=== PATIENT | female | born 1945 | race Two or more races ===

== ENCOUNTER 2018-02-15 10:25 | Day surgery (SDC) | payer MEDICARE, OTHER ==
--- NOTE | 2018-02-11 11:44 | Anethesia Preoperative Eval ---
Anesthesia Pre-op PMH/ROS General Date of Evaluation: February 11, 2018 Anesthesiologist: Moon ASA Score: ASA 3 Mallampati Score Class I : Soft palate, uvula, fauces, pillars visible Class II: Soft palate, uvula, fauces visible Class III: Soft palate, base of uvula visible Class IV: Only hard plate visible Mallampati Classification: Class II Surgeon: Talia Diagnosis: Abd Pain Surgical Procedure: EGD/EUS Anesthesia History: none Family History: no anesthesia problems Allergies: Uncoded Allergies: PCN (Allergy, Unknown, 10/29/15) Medications: see eMAR Past Medical History Cardiovascular: Reports: HTN, arrhythmia - AFib, other - HL Gastrointestinal/Genitourinary: Reports: GERD Neurologic/Psychiatric: Reports: CVA, depression/anxiety Anesthesia Pre-op Phys. Exam Physician Exam Vital Signs Date Time Temp Pulse Resp B/P (MAP) Pulse Ox O2 Delivery O2 Flow Rate FiO2 02/11/18 11:56 97.5 93 14 137/76 98 Room Air 97.5 Constitutional: NAD Neurologic: CN 2-12 intact Cardiovascular: RRR Respiratory: CTA Gastrointestinal: S/NT/ND Airway Exam Mallampati Score: Class II MO: limited ROM: limited Teeth: missing, intact Anesthesia Pre-op A/P Risk Assessment & Plan Assessment: ASA 3 Plan: GA Status Change Before Surgery: Yuan Chamberlain MD February 11, 2018 11:44
[2018-02-11 11:56] VITALS: BP 137/76
[2018-02-11 12:16] LABS: BASOPHILS % (AUTO) 1.5 % (0.0-2.0); EOSINOPHILS % (AUTO) 3.4 % (0.0-3.0); HEMATOCRIT 41.1 % (37.0-47.0); LYMPHOCYTES % (AUTO) 33.5 % (20.0-45.0); MEAN CORPUSCULAR VOLUME 90 FL (80-99); NEUTROPHILS % (AUTO) 52.6 % (45.0-75.0); PLATELET COUNT 230 K/UL (150-450); RED BLOOD COUNT 4.56 M/UL (4.20-5.40); RED CELL DISTRIBUTION WIDTH 12.5 % (11.6-14.8); WHITE BLOOD COUNT 5.8 K/UL (4.8-10.8)
--- NOTE | 2018-02-11 12:18 | Immediate Post-Op Evaluation ---
Immediate Post-Op Evalulation Immediate Post-Op Evalulation Procedure: EGD/EUS Date of Evaluation: February 11, 2018 Blood Products: 0 Estimated Blood Loss: 1 Urinary Output: 0 Pain Score (1-10): 1 Nausea: No Vomiting: No Complications 0 Patient Status: awake, reacts, patent, none Hydration Status: adequate Yuan Mustafa MD February 11, 2018 12:18
--- NOTE | 2018-02-11 12:19 | 48 Hour Post Anesthesia Eval ---
Post Anesthesia Evaluation Procedure: EGD/EUS Date of Evaluation: February 11, 2018 Airway: patent Nausea: No Vomiting: No Pain Intensity: 1 Hydration Status: adequate Cardiopulmonary Status: Stable Mental Status/LOC: patient returned to baseline Follow-up Care/Observations: 0 Post-Anesthesia Complications: 0 Follow-up care needed: ready to discharge Yuan Mustafa MD February 11, 2018 12:19
[2018-02-11 12:29] LABS: ANION GAP 6 mmol/L (5-15); BLOOD UREA NITROGEN 17 mg/dL (7-18); CALCIUM 8.8 MG/DL (8.5-10.1); CARBON DIOXIDE 29 MMOL/L (21-32); CHLORIDE 105 MMOL/L (98-107); CREATININE 0.9 MG/DL (0.55-1.30); POTASSIUM 3.6 MMOL/L (3.5-5.1); SODIUM 140 MMOL/L (136-145)
[2018-02-11 12:39] LABS: ALANINE AMINOTRANSFERASE 22 U/L (12-78); ALBUMIN 3.5 G/DL (3.4-5.0); ALBUMIN/GLOBULIN RATIO 0.9 (1.0-2.7); ALKALINE PHOSPHATASE 104 U/L (46-116); AMYLASE 18 U/L (25-115); ASPARTATE AMINO TRANSFERASE 18 U/L (15-37); BILIRUBIN,TOTAL 0.4 MG/DL (0.2-1.0)
--- NOTE | 2018-02-14 14:00 | Cardiology Report ---
APPROVED REPORT EKG Measurement Heart [id number] Atrial fibrillation Voltage criteria for left ventricular hypertrophy Prolonged QT Abnormal ECG
[~2018-02-15] VITALS: Ht 149.9 cm; Wt 77.1 kg
[2018-02-15] VITALS (9 sets, daily range): BP systolic 105–162; BP diastolic 64–99
[~2018-02-15 10:25] MED LIST: ATORVASTATIN CA40 MG ORAL; AZOPT10 ML OP; Atropine Inj 1mg/10ml Syr IV PRN; BENAZEPRIL HCL10 MG ORAL; BRIMONIDINE TAR10 ML OP; CARDIZEM CD240 MG ORAL; CYMBALTA60 MG ORAL; DILTIAZEM 24HR180 M1 ORAL; DONEPEZIL HCL10 M2 ORAL; DiphenhydrAMINE 50mg/ml Inj IVP PRN; GABAPENTIN300 MG/61 ORAL; HYDROcodone/Acetamin 7.5/325 tab ORAL PRN; Ketorolac 30mg Inj IV PRN; LATANOPROST1 GM OP; LORazepam Inj 2mg/ml 1ml IV PRN; LR 1000ml 1,000 ML IVLG SCH; Labetalol 5mg/ml 20ml vial IV PRN; METOPROLOL SUCC25 MG ORAL; Metoclopramide 10mg/2ml Inj IVP PRN; Midazolam 2mg/2ml Inj IVP PRN; Norco 5mg/325mg tab ORAL PRN; OMEPRAZOLE20 M2 ORAL; PREDNISOLONE ACE5 ML OP; TIMOPTIC 0.5%1 DRO1; TRAMADOL HCL100 M2 ORAL; XARELTO20 MG ORAL; fentaNYL 100 mcg/2 mL IV PRN; oxyCODONE HCL/Acetaminophen 5/325mg ORAL PRN
[2018-02-15] MEDS ORDERED: LR 1000ml 1,000 ML IVLG SCH (11:55)
[2018-02-15] MEDS ORDERED: LORazepam Inj 2mg/ml 1ml IV PRN (12:00)
[2018-02-15] MEDS ORDERED: LR 1000ml ONE (12:00)
[2018-02-15] MEDS ORDERED: HYDROcodone/Acetamin 7.5/325 tab ORAL PRN (12:00)
[2018-02-15] MEDS ORDERED: Labetalol 5mg/ml 20ml vial IV PRN (12:00)
[2018-02-15] MEDS ORDERED: Lidocaine 1% Plain 30 ml INJ ONE (12:00)
[2018-02-15] MEDS ORDERED: Atropine Inj 1mg/10ml Syr IV PRN (12:00)
[2018-02-15] MEDS ORDERED: fentaNYL 100 mcg/2 mL IV PRN (12:00)
[2018-02-15] MEDS ORDERED: Ketorolac 30mg Inj IV PRN ×2 (12:00)
[2018-02-15] MEDS ORDERED: oxyCODONE HCL/Acetaminophen 5/325mg ORAL PRN (12:00)
[2018-02-15] MEDS ORDERED: Norco 5mg/325mg tab ORAL PRN (12:00)
[2018-02-15] MEDS ORDERED: DiphenhydrAMINE 50mg/ml Inj IVP PRN (12:00)
[2018-02-15] MEDS ORDERED: Metoclopramide 10mg/2ml Inj IVP PRN (12:00)
[2018-02-15] MEDS ORDERED: Propofol 200mg/20ml IV ONE (12:00)
[2018-02-15] MEDS ORDERED: Midazolam 2mg/2ml Inj IVP PRN (12:00)
--- NOTE | 2018-02-15 12:09 | Anethesia Preoperative Eval ---
Anesthesia Pre-op PMH/ROS General Date of Evaluation: February 15, 2018 Time of Evaluation: 11:51 Anesthesiologist: Moon ASA Score: ASA 3 Mallampati Score Class I : Soft palate, uvula, fauces, pillars visible Class II: Soft palate, uvula, fauces visible Class III: Soft palate, base of uvula visible Class IV: Only hard plate visible Mallampati Classification: Class II Surgeon: Talia Diagnosis: Abd Pain Surgical Procedure: EGD/EUS Anesthesia History: none Family History: no anesthesia problems Allergies: Uncoded Allergies: PCN (Allergy, Unknown, 10/29/15) Medications: see eMAR Past Medical History Cardiovascular: Reports: HTN, other - HL Gastrointestinal/Genitourinary: Reports: GERD Neurologic/Psychiatric: Reports: CVA, depression/anxiety Anesthesia Pre-op Phys. Exam Physician Exam Last Vital Signs Date Time Temp Pulse Resp B/P (MAP) Pulse Ox O2 Delivery O2 Flow Rate FiO2 02/15/18 11:00 97.8 87 18 162/99 87 Room Air 97.8 Constitutional: NAD Neurologic: CN 2-12 intact Cardiovascular: RRR Respiratory: CTA Gastrointestinal: S/NT/ND Airway Exam Mallampati Score: Class II MO: limited ROM: limited Teeth: missing, intact Anesthesia Pre-op A/P Risk Assessment & Plan Assessment: ASA 3 Plan: GA Status Change Before Surgery: Yuan Chamberlain MD February 15, 2018 12:09
[2018-02-15] MEDS ORDERED: Heplock Flush 100 units/ml 3 ml syr ONE (12:10)
--- NOTE | 2018-02-15 12:13 | Immediate Post-Op Evaluation ---
Immediate Post-Op Evalulation Immediate Post-Op Evalulation Procedure: EGD/EUS Date of Evaluation: February 15, 2018 Time of Evaluation: 13:24 IV Fluids: 1000 LR Blood Products: 0 Estimated Blood Loss: 1 Urinary Output: 0 Blood Pressure Systolic: 149 Blood Pressure Diastolic: 68 Pulse Rate: 106 Respiratory Rate: 16 O2 Sat by Pulse Oximetry: 100 Temperature (Fahrenheit): 97.8 Pain Score (1-10): 1 Nausea: No Vomiting: No Complications 0 Patient Status: awake, reacts, patent, none Hydration Status: adequate Yuan Mustafa MD February 15, 2018 12:13
--- NOTE | 2018-02-15 12:14 | 48 Hour Post Anesthesia Eval ---
Post Anesthesia Evaluation Procedure: EGD/EUS Date of Evaluation: February 15, 2018 Time of Evaluation: 16:34 Blood Pressure Systolic: 152 0: 98 Pulse Rate: 114 Respiratory Rate: 18 Temperature (Fahrenheit): 98.2 O2 Sat by Pulse Oximetry: 100 Airway: patent Nausea: No Vomiting: No Pain Intensity: 1 Hydration Status: adequate Cardiopulmonary Status: Stable Mental Status/LOC: patient returned to baseline Follow-up Care/Observations: 0 Post-Anesthesia Complications: 0 Follow-up care needed: ready to discharge Yuan Mustafa MD February 15, 2018 12:14
--- NOTE | 2018-02-15 12:17 | Pre-Procedure Note/Attestation ---
Pre-Procedure Note/Attestation Complete Prior to Procedure Planned Procedure: not applicable Procedure Narrative: eus/egd Indications for Procedure Pre-Operative Diagnosis: pancreatic cyst Attestation I attest that I discussed the nature of the procedure; its benefits; risks and complications; and alternatives (and the risks and benefits of such alternatives ), prior to the procedure, with the patient (or the patient's legal premium service representative). I attest that, if there was a reasonable possibility of needing a blood transfusion, the patient (or the patient's legal premium service representative) was given the [facility] standardized written summary, pursuant to the Otilio [employer]i Blood Safety Act ([place] Health and Safety Code # 1645, as amended). I attest that I re-evaluated the patient just prior to the surgery and that there has been no change in the patient's H&P, except as documented below: Kentrell Melgar MD February 15, 2018 12:17
--- NOTE | 2018-02-15 12:17 | Short Stay Surgery H&P ---
History of Present Illness History of Present Illness Chief Complaint see recent full consult note HPI Kateryna Reza is a 72 year old female who was admitted on for Pancreatic Cyst And Gerd Patient History Allergies: Uncoded Allergies: PCN (Allergy, Unknown, 10/29/15) Medication History Scheduled Atorvastatin Calcium* (Atorvastatin Calcium*), 40 MG ORAL BEDTIME, (Reported) Benazepril Hcl* (Benazepril Hcl*), 40 MG ORAL BID, (Reported) Diltiazem Hcl (Diltiazem 24HR Er), 240 MG ORAL DAILY, (Reported) Donepezil Hcl* (Donepezil Hcl*), 10 MG ORAL DAILY, (Reported) Duloxetine Hcl* (Cymbalta*), 60 MG ORAL DAILY, (Reported) Metoprolol Succinate* (Metoprolol Succinate*), 25 MG ORAL DAILY, (Reported) Omeprazole (Omeprazole), 20 MG ORAL DAILY, (Reported) Rivaroxaban (Xarelto), 20 MG ORAL DAILY, (Reported) Tramadol Hcl (Tramadol Hcl), 100 MG ORAL DAILY, (Reported) Miscellaneous Medications Brimonidine Tartrate (Brimonidine Tartrate), 0.15 % OP, (Reported) Brinzolamide (Azopt), 1 % OP, (Reported) Latanoprost (Latanoprost), 0.005 % OP, (Reported) Timolol Maleate (Timolol Maleate), 1 DROP, (Reported) Discontinued Medications Gabapentin (Gabapentin), 300 MG ORAL BEDTIME, (Reported) Discontinued Reason: Pt stopped taking med Prednisolone Acetate (Prednisolone Acetate), 1 % OP, (Reported) Discontinued Reason: MD discontinued med Physical Exam Vital Signs Last Vital Signs Date Time Temp Pulse Resp B/P (MAP) Pulse Ox O2 Delivery O2 Flow Rate FiO2 02/15/18 11:00 97.8 87 18 162/99 87 Room Air 97.8 Plan Attestation Are the patient's medical conditions optimized for surgery? eKntrell Melgar MD February 15, 2018 12:17
--- NOTE | 2018-02-15 13:03 | Endoscopy Procedure Note ---
Endoscopy Procedure Note General Indication for Procedure: panc cyst Procedures Performed: EGD, other - EUS Operative Findings/Diagnosis: same Specimen: yes Pt Tolerated Procedure Well: Yes Estimated Blood Loss: none Anesthesia Anesthesiologist: bang Anesthesia: MAC Inserted Devices Implant(s) used?: No GI Core Measures 50 yrs or older w/o bx or poly: Not Applicable 10yrs. F/U not recommended: Not Applicable Kenterll Melgar MD February 15, 2018 13:03
--- NOTE | 2018-02-15 16:45 | Procedure Note ---
DATE OF PROCEDURE: 02/15/2018 SURGEON: Kentrell Melgar M.D. ANESTHESIOLOGIST: Dr. Mustafa. PROCEDURE: Upper endoscopy with biopsy and endoscopic ultrasound. ANESTHESIA: Per Dr. Mustafa. INSTRUMENT: Olympus adult flexible upper endoscope and EUS scope. INDICATION: Pancreatic cyst. The procedure, risks, benefits, and possible consequences, including hemorrhage, aspiration, perforation and infection, and alternative treatments, were explained to the patient/legal guardian by Dr. Kentrell Melgar and the patient/legal guardian understood and accepted these risks. DESCRIPTION OF PROCEDURE: After informed consent was obtained and the patient was adequately sedated, first Olympus upper endoscope was advanced from the mouth into the second portion of the duodenum and retroflexion was performed in the stomach. The patient has diffuse gastritis. Random biopsy from antrum was obtained to rule out H. pylori infection. The rest of the examination was grossly within normal limit. At this time, the upper endoscope was retrieved and EUS scope was introduced. Starting scanning at GE junction, first we saw the left adrenal gland without any obvious nodules. No evidence of any obvious celiac axis lymphadenopathy. Then, the scope was slowly advanced into the stomach to evaluate the pancreatic body and tail. The patient had pancreatic atrophy, so making this examination little bit limited. The pancreatic duct was not dilated. There was a cyst of about 6 mm, coming off of pancreatic duct in the body of the pancreas, measured 6 mm, most probably side branch IPMN. There was another cyst of about 6 mm looking simple cyst close to this cyst. This one, we could not see if it was completely coming off of the pancreatic duct or not, so we could not state that, but it was most likely a simple cyst. Also, in this area, there was a 2.5-mm calcification with shadowing suspicious for either tiny stone in the pancreatic duct versus in the parenchyma of the pancreas. No obvious 1.4 cm cyst which was seen on CT was seen in this examination. No peripancreatic lymphadenopathy. Then the scope was advanced to the duodenal bulb and second portion of the duodenum. Gallbladder was seen without any obvious stone in it. Common bile duct was not dilated, measured roughly about 4 mm. No obvious mass was seen in the head of the pancreas. SUMMARY OF FINDINGS: 1. Gastritis, status post biopsy. 2. Atrophic pancreas. 3. A 6-mm cyst coming off of the pancreatic duct in the body of the pancreas suspicious for side branch IPMN. 4. A 6-mm simple-looking cyst also in the body of the pancreas. 5. A 2.5-mm focus of calcification, either a stone in the pancreatic duct versus stone in the pancreatic parenchyma or calcification in the pancreatic parenchyma. 6. No gallstones. Gallbladder looked normal. 7. No common bile duct nor pancreatic duct dilatation. RECOMMENDATIONS: At this time, given these small cysts, no evidence of any early pancreatitis, and the patient is asymptomatic, we will be just recommending monitoring. Consider doing re-imaging in one year. Kentrell Melgar M.D. DR: Kiet JOB#: [id number] CC:
== END 2018-02-15 14:40 | disposition home or self-care (01) ==
LOC: GAS 10:25
DX: K86.2 Cyst of pancreas (principal); K29.70 Gastritis, unspecified, without bleeding; K86.89 Other specified diseases of pancreas; I48.91 Unspecified atrial fibrillation; K21.9 Gastro-esophageal reflux disease without esophagitis; I10 Essential (primary) hypertension; F32.9 Major depressive disorder, single episode, unspecified; F41.9 Anxiety disorder, unspecified; Z86.73 Personal history of transient ischemic attack (TIA), and cerebral infarction without residual deficits; Z88.0 Allergy status to penicillin
CPT/HCPCS: 36415; 43239; 43259; 80053; 82150; 82378; 83690; 85025; 85610; 85730; 93005; J2001; J2704; J7120; 94003; 94150

== ENCOUNTER 2018-03-07 14:15 | Outpatient (CLI) | payer MEDICARE, OTHER ==
[~2018-03-07 14:15] MED LIST changes: -Atropine Inj 1mg/10ml Syr IV PRN; -DiphenhydrAMINE 50mg/ml Inj IVP PRN; -HYDROcodone/Acetamin 7.5/325 tab ORAL PRN; -Ketorolac 30mg Inj IV PRN; -LORazepam Inj 2mg/ml 1ml IV PRN; -LR 1000ml 1,000 ML IVLG SCH; -Labetalol 5mg/ml 20ml vial IV PRN; -Metoclopramide 10mg/2ml Inj IVP PRN; -Midazolam 2mg/2ml Inj IVP PRN; -Norco 5mg/325mg tab ORAL PRN; -fentaNYL 100 mcg/2 mL IV PRN; -oxyCODONE HCL/Acetaminophen 5/325mg ORAL PRN
--- NOTE | 2018-03-07 15:20 | GI Progress Note ---
Assessment/Plan Problems: (1) Pancreatic cyst ICD Codes: K86.2 - Cyst of pancreas SNOMED: 79868439 (2) GERD (gastroesophageal reflux disease) ICD Codes: K21.9 - Gastro-esophageal reflux disease without esophagitis SNOMED: 018099063 (3) CVA (cerebral vascular accident) ICD Codes: I63.9 - Cerebral infarction, unspecified SNOMED: 543017237 Status: stable Status Narrative Seen with Dr. Melgar. Assessment/Plan SUMMARY OF FINDINGS reviewed with patient: 1. Gastritis, status post biopsy. 2. Atrophic pancreas. 3. A 6-mm cyst coming off of the pancreatic duct in the body of the pancreas suspicious for side branch IPMN. 4. A 6-mm simple-looking cyst also in the body of the pancreas. 5. A 2.5-mm focus of calcification, either a stone in the pancreatic duct versus stone in the pancreatic parenchyma or calcification in the pancreatic parenchyma. 6. No gallstones. Gallbladder looked normal. 7. No common bile duct nor pancreatic duct dilatation. RECOMMENDATIONS: At this time, given these small cysts, no evidence of any early pancreatitis, and the patient is asymptomatic, we will be just recommending monitoring. MRCP/MRI x 1 year recommend IS CONSULTANT evaluation RTC x 1 month plan for CLN if IS CONSULTANT exam negative The patient was seen and examined at bedside and all new and available data was reviewed in the patients chart. I agree with the above findings, impression and plan. (Patient seen earlier today. Signature stamp does not reflect patient encounter time.). - Kentrell Melgar MD Subjective Gastrointestinal/Abdominal: Reports: no symptoms Objective T 97.2 BP 108/49 P 92 98 RA General Appearance: WD/WN, no apparent distress, alert Cardiovascular: normal rate Respiratory/Chest: normal breath sounds, no respiratory distress Abdominal Exam: normal bowel sounds, non tender, soft Extremities: normal range of motion, non-tender Garrett Willoughby NP Mar 07, 2018 15:20
== END 2018-03-07 14:48 | disposition home or self-care (01) ==
LOC: PAN 14:15
DX: K86.2 Cyst of pancreas (principal); K21.9 Gastro-esophageal reflux disease without esophagitis; I63.9 Cerebral infarction, unspecified; K29.70 Gastritis, unspecified, without bleeding
CPT/HCPCS: 99211